=== PATIENT | female | born 1995 | race American Indian/Alaskan Native ===

== ENCOUNTER 2018-09-27 11:51 | Emergency (ER) | payer MEDICAID ==
[2018-09-27] MEDS ORDERED: TYLENOL PO ONE (12:11)
--- NOTE | 2018-09-27 12:12 | Emergency Department Report ---
Blank Doc - Documentation Documentation: 23 y/ofemale with a confirm preg at [facility] 08/29/18 reports that she had a miscarriage at home. Come in for pelvis paiin, nausea, vomiting and low grade fever. Patient is a DM type 1 in insulin Alejandra Davis
[2018-09-27] MEDS ORDERED: TYLENOL ONE (12:15)
[2018-09-27] MEDS ORDERED: ZOFRAN ODT PO ONE (12:15)
[2018-09-27] MEDS ORDERED: ZOFRAN ODT ONE (12:18)
[2018-09-27] MEDS ORDERED: NACL 0.9% 1000 ML 1,000 ML IV ONE ×2 (12:34→12:41)
[2018-09-27] MEDS ORDERED: ZOFRAN IV ONE ×2 (12:34→15:52)
[2018-09-27] MEDS ORDERED: MORPHINE IV ONE ×2 (12:41→15:48)
[2018-09-27 12:50] LABS: Basophils # (Auto) 0.1 K/mm3 (0.0-0.1); Basophils % (Auto) 0.8 % (0.0-1.8); Eosinophils # (Auto) 0.1 K/mm3 (0.0-0.4); Eosinophils % (Auto) 1.6 % (0.0-4.3); Hematocrit 37.1 % (30.3-42.9); Hemoglobin 12.6 gm/dl (10.1-14.3); Lymphocytes # (Auto) 1.6 K/mm3 (1.2-5.4); Lymphocytes % (Auto) 22.2 % (13.4-35.0); Mean Corpuscular HGB Conc 34 % (30-34); Mean Corpuscular Volume 93 fl (79-97); Monocytes # (Auto) 0.4 K/mm3 (0.0-0.8); Monocytes % (Auto) 5.2 % (0.0-7.3); Platelet Count 229 K/mm3 (140-440); Red Blood Count 4.01 M/mm3 (3.65-5.03); Red Cell Distribution Width 13.4 % (13.2-15.2)
[2018-09-27 13:09] LABS: Alanine Aminotransferase 16 units/L (7-56); Albumin 4.3 g/dL (3.9-5); BUN/Creatinine Ratio 13; Blood Urea Nitrogen 9 mg/dL (7-17); Calcium 9.3 mg/dL (8.4-10.2); Hemolysis Index 7
[2018-09-27 13:15] LABS: Bilirubin,Urine NEG (Negative); Blood,Urine SM (Negative); Color,Urine Yellow (Yellow); Protein,Urine <15 mg/dL mg/dL (Negative)
--- NOTE | 2018-09-27 13:27 | Emergency Department Report ---
ED Abdominal Pain HPI - General Chief Complaint: Nausea/Vomiting/Diarrhea Stated Complaint: DIABETIC/ABD PAIN Time Seen by Provider: 09/27/18 12:33 Source: patient Mode of arrival: Ambulatory Limitations: No Limitations - History of Present Illness Initial Comments: 23-year-old female with a past medical history of insulin-dependent diabetes and recurrent pancreatitis presents to the hospital when she had a miscarriage 2 weeks ago like he secondary to a anchored clear. Now she is having recurrent abdominal pain and vomiting since this a.m. and started 1 hour prior to arrival. Patient states that her pancreatitis is secondary to her diabetes. She experienced 3 weeks of intermittent vomiting and abdominal pain which she thinks caused her miscarriage. Patient did have an ultrasound at [facility] but an IUP was not verified and she was told to return as her advances. 2 weeks ago patient passed what looked like a blood clot mixed with a small fetus. She has not followed up since passing the baby and continues to have mild bleeding and intermittent suprapubic cramps. She denies fever or dysuria and states her blood type is A+. This was her fourth . She has 2 living children and now has had her second miscarriage. Her [employer] doctors are affiliated with [facility] and she denies previous abdominal surgeries. Patient reports she has been using tampons for the bleeding. Pt took her insulin prior to arrival. Severity scale (0 -10): 8 - Related Data Previous Rx's Medication Instructions Recorded Last Taken Type Famotidine [Pepcid] 20 mg PO BID #20 tablet 09/27/18 Unknown Rx HYDROcodone/APAP 5-325 [Addis 1 each PO Q6HR PRN #14 tablet 09/27/18 Unknown Rx 5/325] Ondansetron [Zofran Odt] 4 mg PO Q8HR PRN #20 tab.rapdis 09/27/18 Unknown Rx Allergies Allergy/AdvReac Type Severity Reaction Status Date / Time No Known Allergies Allergy Unverified 09/27/18 11:56 ED Review of Systems ROS: Stated complaint: DIABETIC/ABD PAIN Other details as noted in HPI Comment: All other systems reviewed and negative ED Past Medical Hx - Past Medical History Hx Diabetes: Yes (IDDM) - Surgical History Past Surgical History?: No - Social History Smoking Status: Never Smoker Substance Use Type: None - Medications Home Medications: Home Medications Medication Instructions Recorded Confirmed Last Taken Type Famotidine [Pepcid] 20 mg PO BID #20 tablet 09/27/18 Unknown Rx HYDROcodone/APAP 5-325 [Addis 1 each PO Q6HR PRN #14 tablet 09/27/18 Unknown Rx 5/325] Ondansetron [Zofran Odt] 4 mg PO Q8HR PRN #20 tab.rapdis 09/27/18 Unknown Rx ED Physical Exam - General Limitations: No Limitations - Other Other exam information: General: No limitations, patient is alert in no acute distress Head exam: Atraumatic, normocephalic Eyes exam: Normal appearance, nonicteric sclera ENT: Moist mucous membrane, normal oropharynx Neck exam: Normal inspection, full range of motion, no meningismus nontender Respiratory exam: Clear to auscultation bilateral, no wheezes, rales, crackles Cardiovascular: Mild tachycardia Abdomen: Soft, nondistended, epigastric and suprapubic tenderness, with normal bowel sounds, no rebound, or guarding Extremity: Full range of motion normal inspection no deformity Back: Normal Inspection, full range of motion, no tenderness Neurologic: Alert, oriented x3, cranial nerves intact, no motor or sensory deficit Psychiatric: normal affect, normal mood Skin: Warm, dry, intact ED Course Vital Signs 09/27/18 09/27/18 09/27/18 12:09 13:10 14:41 Temperature 99.9 F H Pulse Rate 107 H 80 74 Respiratory 18 18 18 Rate Blood Pressure 130/90 Blood Pressure 109/66 115/65 [Right] O2 Sat by Pulse 98 100 100 Oximetry ED Medical Decision Making - Lab Data Result diagrams: 09/27/18 12:27 09/27/18 12:27 Lab Results 09/27/18 09/27/18 09/27/18 Range/Units 12:05 12:27 12:27 WBC 7.0 (4.5-11.0) K/mm3 RBC 4.01 (3.65-5.03) M/mm3 Hgb 12.6 (10.1-14.3) gm/dl Hct 37.1 (30.3-42.9) % MCV 93 (79-97) fl MCH 31 (28-32) pg MCHC 34 (30-34) % RDW 13.4 (13.2-15.2) % Plt Count 229 (140-440) K/mm3 Lymph % (Auto) 22.2 (13.4-35.0) % [place] % (Auto) 5.2 (0.0-7.3) % Eos % (Auto) 1.6 (0.0-4.3) % Baso % (Auto) 0.8 (0.0-1.8) % Lymph # 1.6 (1.2-5.4) K/mm3 [place] # 0.4 (0.0-0.8) K/mm3 Eos # 0.1 (0.0-0.4) K/mm3 Baso # 0.1 (0.0-0.1) K/mm3 Seg Neutrophils % 70.2 H (40.0-70.0) % Seg Neutrophils # 4.9 (1.8-7.7) K/mm3 VBG pH (7.320-7.420) Sodium 133 L (137-145) mmol/L Potassium 3.7 (3.6-5.0) mmol/L Chloride 100.2 (98-107) mmol/L Carbon Dioxide 21 L (22-30) mmol/L Anion Gap 16 mmol/L BUN 9 (7-17) mg/dL Creatinine 0.7 (0.7-1.2) mg/dL Estimated GFR > 60 ml/min BUN/Creatinine Ratio 13 % Glucose 239 H (65-100) mg/dL POC Glucose 246 H (70-105) Calcium 9.3 (8.4-10.2) mg/dL Total Bilirubin 0.30 (0.1-1.2) mg/dL AST 18 (5-40) units/L ALT 16 (7-56) units/L Alkaline Phosphatase 68 (35-129) units/L Total Protein 7.8 (6.3-8.2) g/dL Albumin 4.3 (3.9-5) g/dL Albumin/Globulin Ratio 1.2 % Lipase 32 (13-60) units/L HCG, Quant (0-4) mIU/mL Urine Color (Yellow) Urine Turbidity (Clear) Urine pH (5.0-7.0) Ur Specific [place] (1.003-1.030) Urine Protein (Negative) mg/dL Urine Glucose (UA) (Negative) mg/dL Urine Ketones (Negative) mg/dL Urine Blood (Negative) Urine Nitrite (Negative) Urine Bilirubin (Negative) Urine Urobilinogen (<2.0) mg/dL Ur Leukocyte Esterase (Negative) Urine WBC (Auto) (0.0-6.0) /HPF Urine RBC (Auto) (0.0-6.0) /HPF U Epithel Cells (Auto) (0-13.0) /HPF Blood Type Antibody Screen 09/27/18 09/27/18 09/27/18 Range/Units 12:27 12:35 12:38 WBC (4.5-11.0) K/mm3 RBC (3.65-5.03) M/mm3 Hgb (10.1-14.3) gm/dl Hct (30.3-42.9) % MCV (79-97) fl MCH (28-32) pg MCHC (30-34) % RDW (13.2-15.2) % Plt Count (140-440) K/mm3 Lymph % (Auto) (13.4-35.0) % [place] % (Auto) (0.0-7.3) % Eos % (Auto) (0.0-4.3) % Baso % (Auto) (0.0-1.8) % Lymph # (1.2-5.4) K/mm3 [place] # (0.0-0.8) K/mm3 Eos # (0.0-0.4) K/mm3 Baso # (0.0-0.1) K/mm3 Seg Neutrophils % (40.0-70.0) % Seg Neutrophils # (1.8-7.7) K/mm3 VBG pH 7.467 H (7.320-7.420) Sodium (137-145) mmol/L Potassium (3.6-5.0) mmol/L Chloride (98-107) mmol/L Carbon Dioxide (22-30) mmol/L Anion Gap mmol/L BUN (7-17) mg/dL Creatinine (0.7-1.2) mg/dL Estimated GFR ml/min BUN/Creatinine Ratio % Glucose (65-100) mg/dL POC Glucose (70-105) Calcium (8.4-10.2) mg/dL Total Bilirubin (0.1-1.2) mg/dL AST (5-40) units/L ALT (7-56) units/L Alkaline Phosphatase (35-129) units/L Total Protein (6.3-8.2) g/dL Albumin (3.9-5) g/dL Albumin/Globulin Ratio % Lipase (13-60) units/L HCG, Quant 122.2 H (0-4) mIU/mL Urine Color Yellow (Yellow) Urine Turbidity Slightly-cloudy (Clear) Urine pH 6.0 (5.0-7.0) Ur Specific [place] 1.028 (1.003-1.030) Urine Protein <15 mg/dl (Negative) mg/dL Urine Glucose (UA) 150 (Negative) mg/dL Urine Ketones Neg (Negative) mg/dL Urine Blood Sm (Negative) Urine Nitrite Neg (Negative) Urine Bilirubin Neg (Negative) Urine Urobilinogen 4.0 (<2.0) mg/dL Ur Leukocyte Esterase Neg (Negative) Urine WBC (Auto) 1.0 (0.0-6.0) /HPF Urine RBC (Auto) 1.0 (0.0-6.0) /HPF U Epithel Cells (Auto) 5.0 (0-13.0) /HPF Blood Type Antibody Screen 09/27/18 Range/Units 13:04 WBC (4.5-11.0) K/mm3 RBC (3.65-5.03) M/mm3 Hgb (10.1-14.3) gm/dl Hct (30.3-42.9) % MCV (79-97) fl MCH (28-32) pg MCHC (30-34) % RDW (13.2-15.2) % Plt Count (140-440) K/mm3 Lymph % (Auto) (13.4-35.0) % [place] % (Auto) (0.0-7.3) % Eos % (Auto) (0.0-4.3) % Baso % (Auto) (0.0-1.8) % Lymph # (1.2-5.4) K/mm3 [place] # (0.0-0.8) K/mm3 Eos # (0.0-0.4) K/mm3 Baso # (0.0-0.1) K/mm3 Seg Neutrophils % (40.0-70.0) % Seg Neutrophils # (1.8-7.7) K/mm3 VBG pH (7.320-7.420) Sodium (137-145) mmol/L Potassium (3.6-5.0) mmol/L Chloride (98-107) mmol/L Carbon Dioxide (22-30) mmol/L Anion Gap mmol/L BUN (7-17) mg/dL Creatinine (0.7-1.2) mg/dL Estimated GFR ml/min BUN/Creatinine Ratio % Glucose (65-100) mg/dL POC Glucose (70-105) Calcium (8.4-10.2) mg/dL Total Bilirubin (0.1-1.2) mg/dL AST (5-40) units/L ALT (7-56) units/L Alkaline Phosphatase (35-129) units/L Total Protein (6.3-8.2) g/dL Albumin (3.9-5) g/dL Albumin/Globulin Ratio % Lipase (13-60) units/L HCG, Quant (0-4) mIU/mL Urine Color (Yellow) Urine Turbidity (Clear) Urine pH (5.0-7.0) Ur Specific [place] (1.003-1.030) Urine Protein (Negative) mg/dL Urine Glucose (UA) (Negative) mg/dL Urine Ketones (Negative) mg/dL Urine Blood (Negative) Urine Nitrite (Negative) Urine Bilirubin (Negative) Urine Urobilinogen (<2.0) mg/dL Ur Leukocyte Esterase (Negative) Urine WBC (Auto) (0.0-6.0) /HPF Urine RBC (Auto) (0.0-6.0) /HPF U Epithel Cells (Auto) (0-13.0) /HPF Blood Type A POSITIVE Antibody Screen Negative - Radiology Data Radiology results: report reviewed Transvaginal/OB ultrasound: No IUP. Ovaries are identified. Endometrial thickness 1.1 m towards the fundus. Cervix closed. No free fluid. Abdominal ultrasound: No acute findings. - Medical Decision Making no lab signs of infection hr improved with pain control (morphine) and IVF (2L NS) no signs of dka plan to d/c with meds and f/u with her obstetrics and gynecology professor copy of results provided to take to her [facility] obstetrics and gynecology professor rh+ blood type (no rhogam) - Differential Diagnosis DKA, UTI, hyperglycemia, pancreatitis, biliary colic, miscarriage Critical Care Time: No Critical care attestation.: If time is entered above; I have spent that time in minutes in the direct care of this critically ill patient, excluding procedure time. ED Disposition Clinical Impression: Miscarriage, Nausea and vomiting, IDDM (insulin dependent diabetes mellitus) Disposition: TO HOME OR SELFCARE Is pt being admited?: No Does the pt Need Aspirin: No Condition: Stable Instructions: Spontaneous Miscarriage (ED), Diabetes Mellitus Type 1 in Adults (ED), Acute Nausea and Vomiting (ED) Additional Instructions: Take the medication as prescribed. Follow up with your doctor or the clinic/doctor provided. Return if symptoms worsen as indicated by your discharge instructions. Take the copy of the labs and US reports provided to your doctor for follow up. Prescriptions: HYDROcodone/APAP 5-325 [Addis 5/325] 1 each PO Q6HR PRN #14 tablet PRN Reason: Pain Famotidine [Pepcid] 20 mg PO BID #20 tablet Ondansetron [Zofran Odt] 4 mg PO Q8HR PRN #20 tab.rapdis PRN Reason: Nausea And Vomiting Referrals: PURA AC MD [Staff Physician] - 2-3 Days (obstetrics and gynecology professor ) your, [employer] [Other] - 2-3 Days Time of Disposition: 15:51
--- NOTE | 2018-09-27 14:54 | Ultrasound Report ---
ULTRASOUND OB LESS THAN 14 WEEKS - TRANSABDOMINAL AND TRANSVAGINAL INDICATION: Vaginal bleeding. Serum beta-hCG of 112.8 units. History of miscarriage 1 week ago. COMPARISON: None similar. FINDINGS: Transabdominal and transvaginal pelvic sonography performed in this patient with LMP of 08/03/2018 and estimated menstrual age of 7 weeks and 6 days and EDC of 05/10/2019. An anteverted uterus measuring approximately 8 x 4.9 x 5.3 cm demonstrates endometrial thickness of approximately 1.1 cm towards the fundus, endovaginal image 8. Cervix closed. No significant free fluid. Right ovary is 2.9 x 1.7 x 2.2 cm while the left ovary is 3.9 x 1.7 x 2.5 cm. Small bilateral follicles incidentally noted. CONCLUSION: 1. No sonographic evidence of a viable intrauterine gestation at this time, as described. 2. Both ovaries identified, as above. Please also correlate clinically for accuracy of the LMP and with followup serum beta-hCG values, as warranted. Thank you for the opportunity to participate in this patient's care.
--- NOTE | 2018-09-27 14:58 | Ultrasound Report ---
ULTRASOUND ABDOMEN INDICATION: Upper abdominal pain, nausea, vomiting. History of pancreatitis. COMPARISON: None similar at this institution. FINDINGS: Abdominal sonography demonstrates normal hepatic contour without focal suspicious lesions or biliary dilatation. Slight nonspecific hepatic coarsening not entirely excluded versus technical. No shadowing gallstones or pericholecystic fluid. A 0.4 cm non-shadowing echogenicity/possible polyp near the gallbladder neck as on image 29. Gallbladder wall thickness is 2.3 mm. Common bile duct is 2.9 mm. Homogenous spleen estimated at 9.8 cm in length. No ascites. Visualized pancreas, nonaneurysmal abdominal aorta and IVC within normal limits. Nonhydronephrotic bilateral kidneys with estimated lengths of 10.3 cm on the right and 9.8 cm on the left. CONCLUSION: No acute abdominal sonographic abnormality with a tiny gallbladder polyp possible, as described. Thank you for the opportunity to participate in this patient's care.
[2018-09-27] MEDS ORDERED: PEPCID IV ONE (15:48)
[2018-09-27 18:49] VITALS: BP 132/60
== END 2018-09-27 18:48 | disposition home or self-care (01) ==
LOC: ED 11:51
DX: O03.9 Complete or unspecified spontaneous abortion without complication (principal); O21.9 Vomiting of pregnancy, unspecified; O24.911 Unspecified diabetes mellitus in pregnancy, first trimester; Z79.4 Long term (current) use of insulin; Z3A.01 Less than 8 weeks gestation of pregnancy
CPT/HCPCS: 36415; 76700; 76801; 76817; 80053; 81001; 82805; 82962; 83690; 84702; 85025; 86850; 86900; 86901; 96361; 96374; 96375; 96376; 99284; J2270; J2405; J7030; Q0162

== ENCOUNTER 2018-10-19 22:33 | Emergency (ER) | payer MEDICAID ==
[2018-10-19 22:58] VITALS: BP 129/92
[2018-10-19 23:30] LABS: Basophils # (Auto) 0.1 K/mm3 (0.0-0.1); Basophils % (Auto) 0.8 % (0.0-1.8); Eosinophils # (Auto) 0.2 K/mm3 (0.0-0.4); Eosinophils % (Auto) 1.8 % (0.0-4.3); Lymphocytes # (Auto) 3.3 K/mm3 (1.2-5.4); Lymphocytes % (Auto) 33.9 % (13.4-35.0); Mean Corpuscular HGB Conc 36 % (30-34); Mean Corpuscular Volume 92 fl (79-97); Monocytes # (Auto) 0.6 K/mm3 (0.0-0.8); Monocytes % (Auto) 5.9 % (0.0-7.3); Platelet Count 249 K/mm3 (140-440); Red Blood Count 4.27 M/mm3 (3.65-5.03); Red Cell Distribution Width 13.5 % (13.2-15.2)
[2018-10-19 23:36] LABS: Hematocrit 39.1 % (30.3-42.9); Hemoglobin 14.1 gm/dl (10.1-14.3)
[2018-10-19 23:54] LABS: Alanine Aminotransferase 41 units/L (7-56); Albumin 4.2 g/dL (3.9-5); BUN/Creatinine Ratio 7; Blood Urea Nitrogen 6 mg/dL (7-17); Calcium 10.1 mg/dL (8.4-10.2); Hemolysis Index 7
[2018-10-20] MEDS ORDERED: ZOFRAN IV ONE (00:22)
[2018-10-20] MEDS ORDERED: NACL 0.9% 1000 ML 1,000 ML IV ONE (00:22)
[2018-10-20] MEDS ORDERED: K-DUR PO ONE (00:22)
[2018-10-20 00:56] LABS: Bilirubin,Urine NEG (Negative); Blood,Urine SM (Negative); Mucus,Urine 2+ /HPF
[2018-10-20 00:58] LABS: Color,Urine Dark Yellow (Yellow)
[2018-10-20] MEDS ORDERED: KCL 10MEQ/100ML 10 MEQ/100 ML BAG IV SCH (01:00)
== END 2018-10-20 00:22 | disposition left against medical advice (07) ==
LOC: ED 22:33
DX: R10.9 Unspecified abdominal pain (principal); Z53.21 Procedure and treatment not carried out due to patient leaving prior to being seen by health care provider
CPT/HCPCS: 36415; 80053; 81001; 83690; 84703; 85025

== ENCOUNTER 2018-10-26 23:53 | Emergency (ER) | payer MEDICAID ==
[2018-10-27 00:38] LABS: Basophils # (Auto) 0.1 K/mm3 (0.0-0.1); Basophils % (Auto) 1.1 % (0.0-1.8); Eosinophils # (Auto) 0.2 K/mm3 (0.0-0.4); Eosinophils % (Auto) 3.9 % (0.0-4.3); Hematocrit 33.7 % (30.3-42.9); Hemoglobin 11.4 gm/dl (10.1-14.3); Lymphocytes # (Auto) 2.1 K/mm3 (1.2-5.4); Lymphocytes % (Auto) 39.9 % (13.4-35.0); Mean Corpuscular HGB Conc 34 % (30-34); Mean Corpuscular Volume 95 fl (79-97); Monocytes # (Auto) 0.4 K/mm3 (0.0-0.8); Monocytes % (Auto) 6.8 % (0.0-7.3); Platelet Count 228 K/mm3 (140-440); Red Blood Count 3.56 M/mm3 (3.65-5.03); Red Cell Distribution Width 13.6 % (13.2-15.2)
[2018-10-27 00:56] LABS: BUN/Creatinine Ratio 10; Blood Urea Nitrogen 8 mg/dL (7-17); Hemolysis Index 18
[2018-10-27 01:44] LABS: Bilirubin,Urine NEG (Negative); Blood,Urine NEG (Negative); Color,Urine Straw (Yellow); Protein,Urine <15 mg/dL mg/dL (Negative); Urobilinogen,Urine < 2.0 mg/dL (<2.0)
[2018-10-27] MEDS ORDERED: ZOFRAN IV ONE (03:12)
[2018-10-27] MEDS ORDERED: HumuLIN R IV ONE ×2 (03:12→05:01)
[2018-10-27] MEDS ORDERED: NACL 0.9% 1000 ML 1,000 ML IV ONE (03:12)
[2018-10-27] MEDS ORDERED: MORPHINE IV ONE (03:33)
[2018-10-27 03:54] LABS: HCG Qualitative,Urine Negative (Negative)
[2018-10-27 04:06] LABS: Alanine Aminotransferase 17 units/L (7-56); Albumin 3.7 g/dL (3.9-5)
[2018-10-27 04:15] LABS: Bilirubin,Direct < 0.2 mg/dL (0-0.2)
[2018-10-27] MEDS ORDERED: TORADOL IV ONE (04:16)
[2018-10-27] MEDS ORDERED: DILAUDID IV ONE (05:01)
--- NOTE | 2018-10-27 05:10 | Cat Scan Report ---
PROCEDURE: CT ABDOMEN PELVIS W CON TECHNIQUE: Computerized axial tomography of the abdomen and pelvis was performed after the IV inject ion of iodinated nonionic contrast. CT DOSE LENGTH PRODUCT: 927.6 mGycm HISTORY: abd distention, n,v, hx of dm and pancreatitis COMPARISONS: None . FINDINGS: Visualized lower thorax: No significant abnormality. Liver: Normal size and attenuation. Spleen: Normal size and attenuation. Gallbladder and biliary system: Normal. Pancreas: Normal. Adrenals: Normal. Kidneys: Normal. GI tract: There is no bowel obstruction. Evaluation of the bowel lumen is limited without contrast. The appendix is normal. . Lymph nodes and mesentery: Normal. Vasculature: Normal.. Bladder: Normal. Reproductive organs: Normal. Peritoneum: There is no ascites or free air, abscess or adenopathy.. Musculoskeletal structures: No significant abnormality. Other: None . IMPRESSION: There is no specific radiographic evidence of pancreatitis. Correlation with amylase and lipase level s may be helpful. . There is no bowel obstruction. Evaluation of the bowel lumen is limited without contrast. The appendi x is normal. . There is no ascites or free air, abscess or adenopathy.. This document is electronically signed by Fransico Hoffman MD., October 27 2018 06:08:08 AM ET
--- NOTE | 2018-10-27 05:33 | Emergency Department Report ---
ED Abdominal Pain HPI - General Chief Complaint: Hyperglycemia Stated Complaint: HIGH BLOOD SUGAR Time Seen by Provider: 10/27/18 03:23 Source: patient Mode of arrival: Ambulatory Limitations: No Limitations - History of Present Illness Initial Comments: 23-year-old female with a past medical history of insulin-dependent diabetes and pancreatitis presents to the Hospital complaining of feeling like her blood sugar is high. She did not check it but states she has symptoms that she has with her blood sugar is significantly elevated. She complains of sharp intermittent abdominal pain, nausea and vomiting since yesterday, and generalized weakness. She denies fever, dysuria, hematuria, or fever. She's been compliant with her insulin. She does have a history of DKA. Feels like her abdomen is more swollen than normal. Severity scale (0 -10): 8 - Related Data Previous Rx's Medication Instructions Recorded Last Taken Type Famotidine [Pepcid] 20 mg PO BID #20 tablet 09/27/18 Unknown Rx HYDROcodone/APAP 5-325 [Barre 1 each PO Q6HR PRN #14 tablet 09/27/18 Unknown Rx 5/325] Ondansetron [Zofran Odt] 4 mg PO Q8HR PRN #20 tab.rapdis 09/27/18 Unknown Rx Insulin NPH, Human [NovoLIN N] 15 unit SQ QPMDIAB #30 day 10/27/18 Unknown Rx Insulin NPH, Human [NovoLIN N] 25 unit SUB-Q QAMDIAB #30 day 10/27/18 Unknown Rx Insulin Regular, Human [Novolin R] 5 units SC AC #30 day 10/27/18 Unknown Rx Allergies Allergy/AdvReac Type Severity Reaction Status Date / Time No Known Allergies Allergy Unverified 09/27/18 11:56 ED Review of Systems ROS: Stated complaint: HIGH BLOOD SUGAR Other details as noted in HPI Comment: All other systems reviewed and negative ED Past Medical Hx - Past Medical History Previous Medical History?: Yes Hx Diabetes: Yes (IDDM) Additional medical history: Pancreatitis - Surgical History Past Surgical History?: No - Social History Smoking Status: Never Smoker Substance Use Type: None - Medications Home Medications: Home Medications Medication Instructions Recorded Confirmed Last Taken Type Famotidine [Pepcid] 20 mg PO BID #20 tablet 09/27/18 Unknown Rx HYDROcodone/APAP 5-325 [Barre 1 each PO Q6HR PRN #14 tablet 09/27/18 Unknown Rx 5/325] Ondansetron [Zofran Odt] 4 mg PO Q8HR PRN #20 tab.rapdis 09/27/18 Unknown Rx Insulin NPH, Human [NovoLIN N] 15 unit SQ QPMDIAB #30 day 10/27/18 Unknown Rx Insulin NPH, Human [NovoLIN N] 25 unit SUB-Q QAMDIAB #30 day 10/27/18 Unknown Rx Insulin Regular, Human [Novolin R] 5 units SC AC #30 day 10/27/18 Unknown Rx ED Physical Exam - General Limitations: No Limitations - Other Other exam information: General: No limitations, patient is alert in no acute distress Head exam: Atraumatic, normocephalic Eyes exam: Normal appearance, nonicteric sclera ENT: Moist mucous membrane, normal oropharynx Neck exam: Normal inspection, full range of motion, no meningismus nontender Respiratory exam: Clear to auscultation bilateral, no wheezes, rales, crackles Cardiovascular: Normal rate and rhythm, normal heart sounds Abdomen: Soft, nondistended, very mild generalized abdominal tenderness, with normal bowel sounds, no rebound, or guarding Extremity: Full range of motion normal inspection no deformity Back: Normal Inspection, full range of motion, no tenderness Neurologic: Alert, oriented x3, cranial nerves intact, no motor or sensory deficit Psychiatric: normal affect, normal mood Skin: Warm, dry, intact ED Course Vital Signs 10/26/18 10/26/18 10/27/18 23:57 23:58 01:46 Temperature 98.0 F 98.0 F Pulse Rate 99 H 94 H 79 Respiratory 18 18 15 Rate Blood Pressure 151/100 151/100 Blood Pressure [Left] O2 Sat by Pulse 100 100 100 Oximetry 10/27/18 10/27/18 10/27/18 01:48 02:00 02:16 Temperature 98 F Pulse Rate 64 Respiratory 20 18 13 Rate Blood Pressure 124/74 133/83 Blood Pressure 124/74 [Left] O2 Sat by Pulse 100 100 100 Oximetry 10/27/18 10/27/18 10/27/18 02:30 03:40 03:46 Temperature Pulse Rate 60 Respiratory 14 18 Rate Blood Pressure 133/83 127/77 103/68 Blood Pressure [Left] O2 Sat by Pulse 100 100 100 Oximetry 10/27/18 10/27/18 10/27/18 04:15 05:00 05:08 Temperature Pulse Rate 69 66 Respiratory 18 16 Rate Blood Pressure 101/60 Blood Pressure [Left] O2 Sat by Pulse 100 Oximetry 10/27/18 10/27/18 10/27/18 05:15 05:30 05:38 Temperature Pulse Rate 60 63 Respiratory 15 15 16 Rate Blood Pressure 107/64 103/58 Blood Pressure [Left] O2 Sat by Pulse 100 97 Oximetry 10/27/18 10/27/18 05:45 06:00 Temperature Pulse Rate 61 60 Respiratory 15 15 Rate Blood Pressure Blood Pressure [Left] O2 Sat by Pulse 99 98 Oximetry ED Medical Decision Making - Lab Data Result diagrams: 10/27/18 00:10 10/27/18 00:12 - Radiology Data Radiology results: report reviewed PROCEDURE: CT ABDOMEN PELVIS W CON TECHNIQUE: Computerized axial tomography of the abdomen and pelvis was performed after the IV injection of iodinated nonionic contrast. CT DOSE LENGTH PRODUCT: 927.6 mGycm HISTORY: abd distention, n,v, hx of dm and pancreatitis COMPARISONS: None . FINDINGS: Visualized lower thorax: No significant abnormality. Liver: Normal size and attenuation. Spleen: Normal size and attenuation. Gallbladder and biliary system: Normal. Pancreas: Normal. Adrenals: Normal. Kidneys: Normal. GI tract: There is no bowel obstruction. Evaluation of the bowel lumen is limited without contrast. The appendix is normal. . Lymph nodes and mesentery: Normal. Vasculature: Normal.. Bladder: Normal. Reproductive organs: Normal. Peritoneum: There is no ascites or free air, abscess or adenopathy.. Musculoskeletal structures: No significant abnormality. Other: None . IMPRESSION: There is no specific radiographic evidence of pancreatitis. Correlation with amylase and lipase levels may be helpful. . There is no bowel obstruction. Evaluation of the bowel lumen is limited without contrast. The appendix is normal. . There is no ascites or free air, abscess or adenopathy.. - Medical Decision Making No signs of DKA. Treated with pain and nausea medication in the ED as well as IV fluids. Improvement in glucose of symptoms after treatment. CT and labs and I reveal any acute abnormality other than hyperglycemia. She will be discharged home with medications for pain and nausea. - Differential Diagnosis DKA, pancreatitis, gastritis, UTI, Critical Care Time: No Critical care attestation.: If time is entered above; I have spent that time in minutes in the direct care of this critically ill patient, excluding procedure time. ED Disposition Clinical Impression: Uncontrolled diabetes mellitus, Nausea & vomiting, Abdominal pain Disposition: TO HOME OR SELFCARE Is pt being admited?: No Condition: Stable Instructions: Diabetes Mellitus Type 2 in Adults (ED), Acute Nausea and Vomiting (ED), Abdominal Pain (ED) Additional Instructions: Take the medication as prescribed. Follow up with your doctor or the clinic/doctor provided. Return if symptoms worsen as indicated by your discharge instructions Prescriptions: Insulin NPH, Human [NovoLIN N] 15 unit SQ QPMDIAB #30 day Insulin NPH, Human [NovoLIN N] 25 unit SUB-Q QAMDIAB #30 day Insulin Regular, Human [Novolin R] 5 units SC AC #30 day Referrals: [facility] [Provider Group] - 3-5 Days PRIMARY CARE, [Primary Care Provider] - 3-5 Days Time of Disposition: 06:00
[2018-10-27 05:39] VITALS: BP 103/58
== END 2018-10-27 06:39 | disposition home or self-care (01) ==
LOC: ED 23:53
DX: E11.65 Type 2 diabetes mellitus with hyperglycemia (principal); R11.2 Nausea with vomiting, unspecified; Z79.4 Long term (current) use of insulin
CPT/HCPCS: 36415; 74177; 80048; 80076; 81001; 81025; 82962; 83690; 85025; 96361; 96374; 96375; 96376; 99284; J1170; J1885; J2270; J2405; J7030; Q9967; J1815

== ENCOUNTER 2018-12-05 15:25 | Inpatient (IN) | payer MEDICAID ==
[2018-12-05] MEDS ORDERED: PROVENTIL IH ONE ×2 (16:08→20:24)
[2018-12-05] MEDS ORDERED: ATROVENT IH ONE ×2 (16:08→20:24)
--- NOTE | 2018-12-05 16:08 | Event Note ---
ED Screening Note ED Screening Note: cough x 3-4 days +white sputum production +subjective fever +rhinorrhea +congestion no sick contacts LNMP: 3 weeks ago pt is a IDDM, states they have been 400-500 PMHx pancreatitis This initial assessment/diagnostic orders/clinical plan/treatment(s) is/are subject to change based on patients health status, clinical progression and re- assessment by fellow clinical providers in the ED. Further treatment and workup at subsequent clinical providers discretion. Patient/guardian urged not to elope from the ED as their condition may be serious if not clinically assessed and managed. Initial orders include: urine preg, UA, CXR, neb tx
[2018-12-05 16:44] LABS: Basophils # (Auto) 0.1 K/mm3 (0.0-0.1); Basophils % (Auto) 0.5 % (0.0-1.8); Eosinophils # (Auto) 0.4 K/mm3 (0.0-0.4); Eosinophils % (Auto) 3.8 % (0.0-4.3); Hematocrit 38.5 % (30.3-42.9); Hemoglobin 13.2 gm/dl (10.1-14.3); Lymphocytes # (Auto) 1.8 K/mm3 (1.2-5.4); Lymphocytes % (Auto) 17.4 % (13.4-35.0); Mean Corpuscular HGB Conc 34 % (30-34); Mean Corpuscular Volume 91 fl (79-97); Monocytes # (Auto) 0.7 K/mm3 (0.0-0.8); Monocytes % (Auto) 6.7 % (0.0-7.3); Platelet Count 284 K/mm3 (140-440); Red Blood Count 4.23 M/mm3 (3.65-5.03); Red Cell Distribution Width 12.9 % (13.2-15.2)
[2018-12-05 16:54] LABS: BUN/Creatinine Ratio 10; Blood Urea Nitrogen 9 mg/dL (7-17); Calcium 9.3 mg/dL (8.4-10.2); Hemolysis Index 2
[2018-12-05 17:36] LABS: HCG Qualitative,Urine Negative (Negative)
[2018-12-05 17:38] LABS: Bacteria,Urine 1+ /HPF (Negative); Bilirubin,Urine NEG (Negative); Blood,Urine NEG (Negative); Color,Urine Straw (Yellow); Protein,Urine <15 mg/dL mg/dL (Negative); Urobilinogen,Urine < 2.0 mg/dL (<2.0)
--- NOTE | 2018-12-05 18:14 | Emergency Department Report ---
- General Chief Complaint: Upper Respiratory Infection Stated Complaint: COUGING/LIGHTHEADED Time Seen by Provider: 12/05/18 18:05 Source: patient Mode of arrival: Ambulatory Limitations: No Limitations - History of Present Illness Initial Comments: Patient is a 23-year-old female presents emergency room with complaints of cough and lightheadedness. Patient states that she's been coughing for 3 days and she is having a yellow sputum. Patient states her symptoms are worsening. Patient states she has chills and body aches. Patient states that she has not seen a physician for this. Patient states she has not seen a physician for over a year for her diabetes. Patient states she is type I diabetic and takes Novolin twice a day. Patient denies chest pain or shortness of breath. Patient denies syncope. Patient denies blurred vision. Patient denies headache. Patient d enies neck pain. MD Complaint: cough, rhinorrhea, nasal congestion -: Sudden, days(s) Severity: severe Consistency: constant Improves With: rest Worsens With: activity Associated Symptoms: chills, myalgias, rhinorrhea, nasal congestion, cough. denies: fever, diaphoresis, headache, sore throat, stiff neck, chest pain, shor tness of breath, abdominal pain, nausea, vomiting, diarrhea, dysuria, rash, confusion, right sweats, weight loss Treatments Prior to Arrival: none - Related Data Previous Rx's Medication Instructions Recorded Last Taken Type Insulin NPH, Human [NovoLIN N] 15 unit SQ QPMDIAB #30 day 10/27/18 Unknown Rx Insulin NPH, Human [NovoLIN N] 25 unit SUB-Q QAMDIAB #30 day 10/27/18 Unknown Rx Insulin Regular, Human [Novolin R] 5 units SC AC #30 day 10/27/18 Unknown Rx Allergies Allergy/AdvReac Type Severity Reaction Status Date / Time No Known Allergies Allergy Verified 12/05/18 15:26 ED Review of Systems ROS: Stated complaint: COUGING/LIGHTHEADED Other details as noted in HPI Constitutional: malaise. denies: chills, fever Eyes: denies: eye pain, eye discharge, vision change ENT: denies: ear pain, throat pain Respiratory: cough. denies: shortness of breath, wheezing Cardiovascular: denies: chest pain, palpitations Endocrine: no symptoms reported Gastrointestinal: denies: abdominal pain, nausea, diarrhea Genitourinary: denies: urgency, dysuria, discharge Musculoskeletal: denies: back pain, joint swelling, arthralgia Skin: denies: rash, lesions Neurological: denies: headache, weakness, paresthesias Psychiatric: denies: anxiety, depression Hematological/Lymphatic: denies: easy bleeding, easy bruising ED Past Medical Hx - Past Medical History Previous Medical History?: Yes Hx Diabetes: Yes (IDDM) Additional medical history: Pancreatitis - Surgical History Past Surgical History?: No - Social History Smoking Status: Never Smoker Substance Use Type: None - Medications Home Medications: Home Medications Medication Instructions Recorded Confirmed Last Taken Type Insulin NPH, Human [NovoLIN N] 15 unit SQ QPMDIAB #30 day 10/27/18 12/05/18 Unknown Rx Insulin NPH, Human [NovoLIN N] 25 unit SUB-Q QAMDIAB #30 day 10/27/18 12/05/18 Unknown Rx Insulin Regular, Human [Novolin R] 5 units SC AC #30 day 10/27/18 12/05/18 Unknown Rx ED Physical Exam - General Limitations: No Limitations General appearance: alert, in no apparent distress - Head Head exam: Present: atraumatic, normocephalic - Eye Eye exam: Present: normal appearance - ENT ENT exam: Present: mucous membranes moist - Neck Neck exam: Present: normal inspection - Respiratory Respiratory exam: Present: normal lung sounds bilaterally, wheezes. Absent: respiratory distress, rales, rhonchi, stridor - Cardiovascular Cardiovascular Exam: Present: regular rate, normal rhythm. Absent: systolic murmur, diastolic murmur, rubs, gallop - GI/Abdominal GI/Abdominal exam: Present: soft, normal bowel sounds. Absent: distended, tenderness, guarding - Rectal Rectal exam: Present: deferred - Extremities Exam Extremities exam: Present: normal inspection - Back Exam Back exam: Present: normal inspection - Neurological Exam Neurological exam: Present: alert, oriented X3 - Psychiatric Psychiatric exam: Present: normal affect, normal mood - Skin Skin exam: Present: warm, dry, intact, normal color. Absent: rash ED Course Vital Signs 12/05/18 12/05/18 12/05/18 16:05 18:53 19:00 Temperature 98.6 F 99 F Pulse Rate 117 H 95 H 98 H Pulse Rate [ Posterior Bilateral Lower Lobe] Respiratory 16 40 H 30 H Rate Respiratory Rate [Posterior Bilateral Lower Lobe] Blood Pressure 130/90 Blood Pressure 121/77 130/90 [Right] O2 Sat by Pulse 97 97 Oximetry 12/05/18 12/05/18 12/05/18 19:15 20:15 20:23 Temperature Pulse Rate 98 H 95 H Pulse Rate [ 99 H Posterior Bilateral Lower Lobe] Respiratory 35 H 22 Rate Respiratory 24 Rate [Posterior Bilateral Lower Lobe] Blood Pressure 130/90 144/84 Blood Pressure [Right] O2 Sat by Pulse 96 97 Oximetry 12/05/18 12/05/18 12/05/18 20:38 21:01 21:15 Temperature Pulse Rate 104 H 109 H Pulse Rate [ 100 H Posterior Bilateral Lower Lobe] Respiratory 28 H 25 H Rate Respiratory 24 Rate [Posterior Bilateral Lower Lobe] Blood Pressure 136/89 150/81 Blood Pressure [Right] O2 Sat by Pulse 96 98 Oximetry 12/05/18 12/05/18 12/05/18 21:30 21:45 22:27 Temperature Pulse Rate 107 H 105 H Pulse Rate [ Posterior Bilateral Lower Lobe] Respiratory 24 24 Rate Respiratory Rate [Posterior Bilateral Lower Lobe] Blood Pressure Blood Pressure [Right] O2 Sat by Pulse 96 95 96 Oximetry 12/05/18 12/05/18 12/05/18 22:31 22:45 23:00 Temperature Pulse Rate 107 H 108 H 109 H Pulse Rate [ Posterior Bilateral Lower Lobe] Respiratory 31 H 28 H 21 Rate Respiratory Rate [Posterior Bilateral Lower Lobe] Blood Pressure 131/84 126/92 Blood Pressure [Right] O2 Sat by Pulse 96 97 95 Oximetry - Reevaluation(s) Reevaluation #1: Patient states she is feeling better after the breathing treatment. Patient will be given insulin and fluids. 12/05/18 18:51 Reevaluation #2: Patient now complaining of severe chest pain or shortness of breath. Patient states the chest pain as a 10 out of 10 and is in the center of her chest radiating to her shoulder. Patient states she is having difficulties breathing. Patient will have a cardiac workup as well as a nuclear scan. Patient is noted to be hypoxic as well at 93. Patient noted to be wheezing on exam. Patient will be given a Medrol, magnesium and another DuoNeb 12/05/18 20:25 Reevaluation #3: Discussed all results with patient. Patient will be admitted to the hospitalist service. Patient agrees to plan of care. 12/05/18 21:43 - Consultations Consultation #1: Hospitalist consulted for admission. Hospitalist to admit patient. Hospitalist to assume care patient. 12/05/18 21:43 ED Medical Decision Making - Lab Data Result diagrams: 12/05/18 16:19 12/05/18 16:19 - EKG Data -: EKG Interpreted by Me EKG shows normal: sinus rhythm, axis, intervals, QRS complexes, ST-T waves Rate: tachycardia - Radiology Data Radiology results: report reviewed, image reviewed interpreted by me: No acute findings except for possible peribronchial cuffing CHEST 2 VIEWS INDICATION / CLINICAL INFORMATION: productive cough. COMPARISON: None available. FINDINGS: SUPPORT DEVICES: None. HEART / MEDIASTINUM: No significant abnormality. LUNGS / PLEURA: No significant pulmonary or pleural abnormality. No pneumothorax. ADDITIONAL FINDINGS: No significant additional findings. IMPRESSION: 1. No acute findings. Nuclear medicine pulmonary VQ scan INDICATION: Acute onset chest pain with dyspnea TECHNIQUE: A total of 24.3 mCi xenon-133 and 3.97 mCi of technetium 99 MAA was injected IV per protocol COMPARISON: Chest radiograph performed earlier today FINDINGS: Normal wash-in and washout of xenon radiotracer. No mismatch perfusion defects are identified IMPRESSION: Low probability for PTE. - Medical Decision Making Patient is a 23-year-old female Emergency room with complaints of cough and dizziness. Patient then while in the ER complained of shortness of breath and chest pain. Patient given her second nebulizer for her shortness of breath wheezing and respiratory distress. Patient was given medications for her pain. Her pain improved. Patient admitted to the hospitalist service. Patient's EKG negative. Due the fact the patient was hypoxic and tachycardic and shortness of breath patient had a nuclear scan done with low probability. Patient's x-ray was negative except for peribronchial cuffing. Patient given antibiotics, Medrol and asa. Patient's labs unremarkable except for elevated blood sugar. Patient is a noncompliant type I diabetic. - Differential Diagnosis cough, chest pain, shortness of breath. Hypoxia. bronchitis Critical Care Time: Yes Critical care attestation.: If time is entered above; I have spent that time in minutes in the direct care of this critically ill patient, excluding procedure time. Critical Care Time: 45 minutes ED Disposition Clinical Impression: Hypoxia, SOB (shortness of breath), Bronchitis, Wheezing, Respiratory distress, Hyperglycemia due to type 1 diabetes mellitus Chest pain Qualifiers: Chest pain type: unspecified Qualified Code(s): R07.9 - Chest pain, unspecified Diabetes Qualifiers: Diabetes mellitus type: type 1 Diabetes mellitus complication status: with other specified complication Qualified Code(s): E10.69 - Type 1 diabetes mellitus with other specified complication Disposition: OP ADMIT IP TO THIS HOSP Is pt being admited?: Yes Does the pt Need Aspirin: No Condition: Critical Time of Disposition: 23:00
[2018-12-05] MEDS ORDERED: HumuLIN R IV ONE ×2 (18:20→21:52)
[2018-12-05] MEDS ORDERED: ROCEPHIN/NS 1 GM/50 ML 1 GM/50 ML BAG IV ONE (18:20)
[2018-12-05] MEDS ORDERED: NACL 0.9% 1000 ML 1,000 ML IV ONE (18:20)
--- NOTE | 2018-12-05 18:27 | XRay Report ---
CHEST 2 VIEWS INDICATION / CLINICAL INFORMATION: productive cough. COMPARISON: None available. FINDINGS: SUPPORT DEVICES: None. HEART / MEDIASTINUM: No significant abnormality. LUNGS / PLEURA: No significant pulmonary or pleural abnormality. No pneumothorax. ADDITIONAL FINDINGS: No significant additional findings. IMPRESSION: 1. No acute findings. Signer Name: Miki Goins MD Signed: 12/05/2018 6:23 PM Workstation Name: [id number]
[2018-12-05] MEDS ORDERED: MORPHINE IV ONE (20:37)
[2018-12-05] MEDS ORDERED: SOLU-Medrol IV ONE (20:37)
[2018-12-05] MEDS ORDERED: MAGNESIUM SULFATE 1 GM in NACL 0.9% 50 ML IV ONE (21:00)
[2018-12-05] MEDS ORDERED: ASPIRIN PO ONE (21:03)
[2018-12-05 21:18] LABS: Creatine Kinase MB 1.6 ng/mL (0.0-4.0)
--- NOTE | 2018-12-05 22:22 | History and Physical Report ---
History of Present Illness Chief complaint: Im coughing, and i cant breathe History of present illness: 23 YO Female with DM, Pancreatitis presents to ED for evaluation. Pt states that she has experienced shortness and productive cough with yellow sputum over the past 3 days with persistent symptoms over the same time frame. Patient acknowledges weakness, chills and body aches. Pt transported to [facility] via private vehicle. Pt seen and evaluated in ED and found to have Acute Bronchitis complicated by Acute Hypoxemic Respiratory Failure with pulse oximetry of 88% on room air, and tachypnea with respiratory rate of 35. Pt treated with supplemental oxygen and nebulizer therapy with improvement in symptoms. Pt admitted to medical floor. Pt denies fever, chills, CP, Palpitations, NVD, Trauma, BRBPR, Productive cough, skin rash, or recent ill contacts. No prior admission for review. No medication listed for reconciliation at time of admission. Past History Past Medical History: diabetes, other (Pancreatitis) Past Surgical History: Social history: single. denies: smoking, alcohol abuse, prescription drug abuse Family history: diabetes, hypertension Medications and Allergies Allergies Allergy/AdvReac Type Severity Reaction Status Date / Time No Known Allergies Allergy Verified 12/05/18 15:26 Home Medications Medication Instructions Recorded Confirmed Last Taken Type Insulin NPH, Human [NovoLIN N] 15 unit SQ QPMDIAB #30 day 10/27/18 12/05/18 Unknown Rx Insulin NPH, Human [NovoLIN N] 25 unit SUB-Q QAMDIAB #30 day 10/27/18 12/05/18 Unknown Rx Insulin Regular, Human [Novolin R] 5 units SC AC #30 day 10/27/18 12/05/18 Unknown Rx Review of Systems Constitutional: no weight loss, no weight gain, no fever, no chills Ears, nose, mouth and throat: no ear pain, no ear discharge, no tinnitis, no decreased hearing, no nose pain, no nasal congestion Breasts: no change in shape, no swelling, no mass Cardiovascular: no chest pain, no orthopnea, no palpitations, no rapid/irregular heart beat, no edema, no syncope Respiratory: cough, cough with sputum, excessive sputum, shortness of breath, sleep apnea Gastrointestinal: no abdominal pain, no nausea, no vomiting, no diarrhea, no constipation Genitourinary Female: no pelvic pain, no flank pain, no menorrhagia, no dysuria, no urinary frequency, no stress incontinence, no post void dribbling Menstruation: no premenarcheal, no post hysterectomy, no ammenorrhea, no ammenorrhea on BC, no period normal Rectal: no pain, no incontinence, no bleeding Musculoskeletal: no neck stiffness, no neck pain, no shooting arm pain Integumentary: no rash, no redness, no sores, no wounds Neurological: no head injury, no paralysis, no weakness, no parathesias, no numbness, no tingling Psychiatric: no anxiety, no memory loss, no sleep disturbances, no insomnia, no hypersomnia, no change in appetite Endocrine: no cold intolerance, no polyphagia, no polyuria Hematologic/Lymphatic: no easy bruising, no easy bleeding Allergic/Immunologic: no urticaria, no allergic rhinitis, no wheezing, no persistent infections Exam - Constitutional Vitals: Temp Pulse Resp BP Pulse Ox 99 F 100 H 24 144/84 97 12/05/18 19:00 12/05/18 20:38 12/05/18 20:38 12/05/18 20:15 12/05/18 20:15 General appearance: Present: mild distress - EENT Eyes: Present: PERRL ENT: hearing intact, clear oral mucosa - Neck Neck: Present: supple, normal ROM - Respiratory Respiratory effort: normal Respiratory: bilateral: diminished, rhonchi - Cardiovascular Heart Sounds: Present: S1 & S2. Absent: rub, click - Extremities Extremities: pulses symmetrical, No edema Peripheral Pulses: within normal limits - Abdominal General gastrointestinal: Present: soft, non-tender, non-distended, normal bowel sounds Female genitourinary: Present: normal - Integumentary Integumentary: Present: clear, warm, dry - Musculoskeletal Musculoskeletal: gait normal, strength equal bilaterally - Psychiatric Psychiatric: appropriate mood/affect, intact judgment & insight - Neurologic Neurologic: CNII-XII intact, moves all extremities Results - Labs CBC & Chem 7: 12/05/18 16:19 12/05/18 16:19 Labs: Abnormal lab results 12/05/18 12/05/18 12/05/18 Range/Units 16:19 16:19 18:27 RDW 12.9 L (13.2-15.2) % Seg Neutrophils % 71.6 H (40.0-70.0) % Sodium 133 L (137-145) mmol/L Carbon Dioxide 21 L (22-30) mmol/L Glucose 440 H (65-100) mg/dL POC Glucose (70-105) Total Creatine Kinase 144 H (30-135) units/L 12/05/18 12/05/18 12/05/18 Range/Units 20:08 20:41 21:50 RDW (13.2-15.2) % Seg Neutrophils % (40.0-70.0) % Sodium (137-145) mmol/L Carbon Dioxide (22-30) mmol/L Glucose (65-100) mg/dL POC Glucose 303 H 304 H (70-105) Total Creatine Kinase 147 H (30-135) units/L Assessment and Plan - Patient Problems (1) Respiratory failure Current Visit: Yes Status: Acute Qualifiers: Chronicity: acute Respiratory failure complication: hypoxia Qualified Code(s): J96.01 - Acute respiratory failure with hypoxia Plan to address problem: Supplemental oxygen,nebulizer therapy, pulse oximetry, (2) Diabetes Current Visit: Yes Status: Acute Plan to address problem: ADA diet, insulin, accu check (3) Bronchitis Current Visit: Yes Status: Acute Plan to address problem: supplemental oxygen, IV antibiotic therapy, IV steroid therapy chest x ray. (4) DVT prophylaxis Current Visit: Yes Status: Acute Plan to address problem: SCD to BLE while in bed, Pt ambulatory
[2018-12-05] MEDS ORDERED: PROVENTIL IH PRN (22:24)
[2018-12-05] MEDS ORDERED: ZOFRAN IV PRN (22:24)
[2018-12-05] MEDS ORDERED: SODIUM CHLORIDE FLUSH SYRINGE 10 ML IV PRN (22:24)
[2018-12-05] MEDS ORDERED: TYLENOL PO PRN (22:24)
--- NOTE | 2018-12-05 22:32 | Nuclear Medicine Report ---
Nuclear medicine pulmonary VQ scan INDICATION: Acute onset chest pain with dyspnea TECHNIQUE: A total of 24.3 mCi xenon-133 and 3.97 mCi of technetium 99 MAA was injected IV per protoc ol COMPARISON: Chest radiograph performed earlier today FINDINGS: Normal wash-in and washout of xenon radiotracer. No mismatch perfusion defects are identifi ed IMPRESSION: Low probability for PTE. Signer Name: Timbo Jordan MD Signed: 12/05/2018 10:28 PM Workstation Name: [id number]
[2018-12-05] MEDS ORDERED: HYDROMET PO ONE (23:39)
[2018-12-05] MEDS ORDERED: NACL 0.45% 1000 ML 1,000 ML IV ONE (23:47)
[2018-12-05] MEDS: NACL 0.45% 1000 ML 1,000 ML IV SCH (23:51)
[2018-12-06] MEDS ORDERED: MORPHINE ONE (03:36)
[2018-12-06] MEDS: MORPHINE IV PRN ×3 (03:40→19:36)
[2018-12-06 05:30] LABS: Hemoglobin 12.4 gm/dl (10.1-14.3); Mean Corpuscular HGB Conc 34 % (30-34); Mean Corpuscular Volume 92 fl (79-97); Platelet Count 240 K/mm3 (140-440); Red Blood Count 3.89 M/mm3 (3.65-5.03); Red Cell Distribution Width 12.5 % (13.2-15.2)
[2018-12-06 05:57] LABS: Alanine Aminotransferase 14 units/L (7-56); Albumin 3.5 g/dL (3.9-5); BUN/Creatinine Ratio 13; Blood Urea Nitrogen 10 mg/dL (7-17); Calcium 9.1 mg/dL (8.4-10.2); Hemolysis Index 6
[2018-12-06 08:34] LABS: Basophils % (Manual) 0 % (0.0-1.8); Eosinophils % (Manual) 0 % (0.0-4.3); Total Cells Counted 100
[2018-12-06 08:36] LABS: Platelet Estimate Consistent w Auto; RBC Morphology Normal; Toxic Granulation 1+
[2018-12-06] MEDS: HumuLIN R SUB-Q SCH ×4 (09:16→21:51)
[2018-12-06] MEDS ORDERED: HumuLIN R ONE (09:16)
[2018-12-06] MEDS: LOVENOX SUB-Q SCH (10:49)
[2018-12-06] MEDS: SODIUM CHLORIDE FLUSH SYRINGE 10 ML IV SCH ×2 (10:50→21:51)
[2018-12-06] MEDS: SOLU-Medrol IV SCH ×2 (12:57→21:51)
--- NOTE | 2018-12-06 15:09 | Progress Note ---
Assessment and Plan /Acute hypoxic Respiratory failure Likely due to acute asthma exacerbation Continue Supplemental oxygen,nebulizer therapy, pulse oximetry, IV steroid / Diabetes type I, uncontrolled ADA diet, insulin, accu check, get A1c /Acute Bronchitis supplemental oxygen, IV antibiotic therapy, /Acute asthma exacerbation Likely new onset Continue Supplemental oxygen,nebulizer therapy, pulse oximetry, IV steroid / DVT prophylaxis SCD to BLE while in bed, Pt ambulatory Hospitalist physical: GENERAL: well-developed and well-nourished -[place] female lying on bed appeared to be in no discomfort. HEENT: Normocephalic. Atraumatic. No conjunctival congestion or icterus. Patient has moist mucous membranes. NECK: Supple. Trachea midline. CHEST/LUNGS: Positive wheezes auscultated bilaterally, breathing nonlabored. No crackles or rhonchi. HEART/CARDIOVASCULAR: Regular in rate and rhythm. S1 and S2 positive. ABDOMEN: Abdomen is soft, nontender. Patient has normal bowel sounds. SKIN: There is no rash. Warm and dry. NEURO: No focal motor deficit. Follows command. MUSCULOSKELETAL: No joint effusion or tenderness. EXTRIMITY: No edema, no cyanosis or clubbing. PSYCH: Cooperative. Subjective Date of service: 12/06/18 Interval history: Patient seen and examined. Medical records and medication list reviewed. No acute event overnight noted by the RN. Patient continued to complain of difficulty breathing and wheezing along with cough on exertion. Patient is tolerating diet. Discussed plan of care at bedside with patient. Objective - Constitutional Vitals: Vital Signs - 12hr 12/06/18 12/06/18 12/06/18 03:40 04:01 05:01 Pulse Rate 81 83 Respiratory 16 21 24 Rate Blood Pressure 120/69 120/69 Blood Pressure [Right] O2 Sat by Pulse 97 97 Oximetry 12/06/18 12/06/18 12/06/18 05:07 06:01 07:01 Pulse Rate 97 H 76 Respiratory 15 24 23 Rate Blood Pressure 117/76 117/76 Blood Pressure 117/76 [Right] O2 Sat by Pulse 98 97 97 Oximetry 12/06/18 12/06/18 08:01 09:01 Pulse Rate 59 L 69 Respiratory Rate Blood Pressure 117/76 117/76 Blood Pressure [Right] O2 Sat by Pulse 98 98 Oximetry - Labs CBC & Chem 7: 12/06/18 04:55 12/07/18 10:58 Labs: Abnormal lab results 12/05/18 12/05/18 12/05/18 Range/Units 16:19 16:19 18:27 RDW 12.9 L (13.2-15.2) % Seg Neutrophils % 71.6 H (40.0-70.0) % Seg Neuts % (Manual) (40.0-70.0) % Lymphocytes % (Manual) (13.4-35.0) % Seg Neutrophils # Man (1.8-7.7) K/mm3 Lymphocytes # (Manual) (1.2-5.4) K/mm3 Sodium 133 L (137-145) mmol/L Potassium (3.6-5.0) mmol/L Carbon Dioxide 21 L (22-30) mmol/L Glucose 440 H (65-100) mg/dL POC Glucose (70-105) Total Creatine Kinase 144 H (30-135) units/L Albumin (3.9-5) g/dL 12/05/18 12/05/18 12/05/18 Range/Units 20:08 20:41 21:50 RDW (13.2-15.2) % Seg Neutrophils % (40.0-70.0) % Seg Neuts % (Manual) (40.0-70.0) % Lymphocytes % (Manual) (13.4-35.0) % Seg Neutrophils # Man (1.8-7.7) K/mm3 Lymphocytes # (Manual) (1.2-5.4) K/mm3 Sodium (137-145) mmol/L Potassium (3.6-5.0) mmol/L Carbon Dioxide (22-30) mmol/L Glucose (65-100) mg/dL POC Glucose 303 H 304 H (70-105) Total Creatine Kinase 147 H (30-135) units/L Albumin (3.9-5) g/dL 12/06/18 12/06/18 12/06/18 Range/Units 00:01 03:30 04:55 RDW 12.5 L (13.2-15.2) % Seg Neutrophils % (40.0-70.0) % Seg Neuts % (Manual) 94.0 H (40.0-70.0) % Lymphocytes % (Manual) 4.0 L (13.4-35.0) % Seg Neutrophils # Man 8.7 H (1.8-7.7) K/mm3 Lymphocytes # (Manual) 0.4 L (1.2-5.4) K/mm3 Sodium (137-145) mmol/L Potassium (3.6-5.0) mmol/L Carbon Dioxide (22-30) mmol/L Glucose (65-100) mg/dL POC Glucose 290 H 331 H (70-105) Total Creatine Kinase (30-135) units/L Albumin (3.9-5) g/dL 12/06/18 12/06/18 12/06/18 Range/Units 04:55 08:52 12:53 RDW (13.2-15.2) % Seg Neutrophils % (40.0-70.0) % Seg Neuts % (Manual) (40.0-70.0) % Lymphocytes % (Manual) (13.4-35.0) % Seg Neutrophils # Man (1.8-7.7) K/mm3 Lymphocytes # (Manual) (1.2-5.4) K/mm3 Sodium 131 L (137-145) mmol/L Potassium 5.1 H D (3.6-5.0) mmol/L Carbon Dioxide 18 L (22-30) mmol/L Glucose 395 H (65-100) mg/dL POC Glucose 427 H 302 H (70-105) Total Creatine Kinase (30-135) units/L Albumin 3.5 L (3.9-5) g/dL
[2018-12-06] MEDS: NACL 0.45% 1000 ML 1,000 ML IV SCH (21:50)
[2018-12-07] MEDS: MORPHINE IV PRN ×3 (02:07→23:11)
[2018-12-07] MEDS: HumuLIN R SUB-Q SCH ×3 (09:03→17:07)
[2018-12-07] MEDS: SOLU-Medrol IV SCH ×3 (09:12→23:06)
[2018-12-07] MEDS: LOVENOX SUB-Q SCH (09:13)
[2018-12-07] MEDS: SODIUM CHLORIDE FLUSH SYRINGE 10 ML IV SCH ×2 (09:16→23:06)
[2018-12-07 12:09] LABS: BUN/Creatinine Ratio 16; Blood Urea Nitrogen 11 mg/dL (7-17); Calcium 9.2 mg/dL (8.4-10.2); Hemolysis Index 8
[2018-12-07] MEDS: DUONEB *Not for PRN Use IH SCH ×2 (14:42→21:06)
--- NOTE | 2018-12-07 14:48 | Progress Note ---
Assessment and Plan /Acute hypoxic Respiratory failure, improved Likely due to acute asthma exacerbation Continue Supplemental oxygen,nebulizer therapy, pulse oximetry, IV steroid / Diabetes type I, uncontrolled with hyperglycemia Likely due to steroid ADA diet, insulin, accu check, A1c 9.7 /Acute Bronchitis supplemental oxygen, IV antibiotic therapy, /Acute asthma exacerbation Likely new onset Continue Supplemental oxygen,nebulizer therapy, pulse oximetry, IV steroid /Hyperkalemia, resolved / DVT prophylaxis SCD to BLE while in bed, Pt ambulatory Disposition: Possible discharge tomorrow if clinically stable Hospitalist physical: GENERAL: well-developed and well-nourished -[place] female lying on bed appeared to be in no discomfort. HEENT: Normocephalic. Atraumatic. No conjunctival congestion or icterus. Patient has moist mucous membranes. NECK: Supple. Trachea midline. CHEST/LUNGS: Positive wheezes auscultated bilaterally, breathing nonlabored. No crackles or rhonchi. HEART/CARDIOVASCULAR: Regular in rate and rhythm. S1 and S2 positive. ABDOMEN: Abdomen is soft, nontender. Patient has normal bowel sounds. SKIN: There is no rash. Warm and dry. NEURO: No focal motor deficit. Follows command. MUSCULOSKELETAL: No joint effusion or tenderness. EXTRIMITY: No edema, no cyanosis or clubbing. PSYCH: Cooperative. Subjective Date of service: 12/07/18 Interval history: Patient seen and examined. Medical records and medication list reviewed. No acute event overnight noted by the RN. Patient continued to complain of difficulty breathing and wheezing along with cough on exertion. Patient is tolerating diet. Discussed plan of care at bedside with patient. Objective - Constitutional Vitals: Vital Signs - 12hr 12/07/18 12/07/18 12/07/18 04:02 10:00 12:48 Temperature 98.3 F Pulse Rate 91 H Pulse Rate [ 95 H Anterior Bilateral Throughout] Respiratory 18 Rate Respiratory 20 Rate [Anterior Bilateral Throughout] Blood Pressure 105/61 O2 Sat by Pulse 95 98 Oximetry 12/07/18 12/07/18 12/07/18 12:58 14:01 14:42 Temperature 98.6 F Pulse Rate 89 Pulse Rate [ 87 104 H Anterior Bilateral Throughout] Respiratory 22 Rate Respiratory 20 20 Rate [Anterior Bilateral Throughout] Blood Pressure 127/83 O2 Sat by Pulse 95 Oximetry - Labs CBC & Chem 7: 12/06/18 04:55 12/07/18 10:58 Labs: Abnormal lab results 12/06/18 12/06/18 12/06/18 Range/Units 16:07 20:56 Unknown Sodium (137-145) mmol/L Carbon Dioxide (22-30) mmol/L Glucose (65-100) mg/dL POC Glucose 336 H 365 H (70-105) Hemoglobin A1c 9.7 H (4-6) % 12/07/18 12/07/18 12/07/18 Range/Units 01:36 08:32 10:58 Sodium 134 L (137-145) mmol/L Carbon Dioxide 21 L (22-30) mmol/L Glucose 308 H (65-100) mg/dL POC Glucose 168 H 279 H (70-105) Hemoglobin A1c (4-6) %
[2018-12-07] MEDS: ZITHROMAX PO SCH (15:32)
[2018-12-07] MEDS: PULMICORT IH SCH (21:06)
[2018-12-07] MEDS ORDERED: SENOKOT S PO PRN (22:13)
[2018-12-07] MEDS: HumaLOG SUB-Q SCH (23:05)
[2018-12-08] MEDS: DUONEB *Not for PRN Use IH SCH ×3 (01:36→13:12)
[2018-12-08] MEDS: SOLU-Medrol IV SCH ×2 (05:54→13:06)
[2018-12-08] MEDS ORDERED: HumaLOG SUB-Q SCH (07:30)
[2018-12-08] MEDS: HumaLOG SUB-Q SCH ×2 (08:30→13:06)
[2018-12-08] MEDS: PULMICORT IH SCH (08:32)
[2018-12-08] MEDS ORDERED: SOLU-Medrol IV SCH (10:00)
[2018-12-08] MEDS ORDERED: COLACE PO SCH (12:00)
[2018-12-08] MEDS ORDERED: DULCOLAX PO ONE (12:00)
[2018-12-08] MEDS ORDERED: MIRALAX 3350 PO SCH (12:00)
[2018-12-08] MEDS: ZITHROMAX PO SCH (12:09)
[2018-12-08] MEDS: SODIUM CHLORIDE FLUSH SYRINGE 10 ML IV SCH (12:10)
[2018-12-08] MEDS: LOVENOX SUB-Q SCH (12:10)
[2018-12-08 12:53] VITALS: BP 149/100
--- NOTE | 2018-12-08 13:05 | Discharge Summary ---
Providers - Providers Date of Admission: 12/05/18 22:24 Date of discharge: 12/08/18 Attending physician: TERESA VALDEZ Primary care physician: KAYLI GARCIA Hospitalization Condition: Critical Pertinent studies: Chest x-ray, VQ scan and abdominal x-ray Hospital course: 23 YO Female with DM, Pancreatitis presents to ED for evaluation of shortness of breath and productive cough with yellow sputum over the past 3 days with persistent symptoms. Pt seen and evaluated in ED and found to have Acute Bronchitis complicated by Acute Hypoxemic Respiratory Failure with pulse oximetry of 88% on room air, and tachypnea with respiratory rate of 35. Pt treated with supplemental oxygen and nebulizer therapy with improvement in symptoms. Pt admitted to medical floor. Continued Supplemental oxygen,nebulizer therapy, pulse oximetry, IV steroid and abx. Her symptom improved and stabilized, managed BG with SSI, and long acting insulin. She was then discharged home in stable condition with outpt followup. Discharge diagnosis and management: /Acute hypoxic Respiratory failure, resolved Likely due to acute asthma exacerbation / Diabetes type I, uncontrolled with hyperglycemia Likely due to steroid, A1c 9.7 /Acute Bronchitis /Acute asthma exacerbation /Hyperkalemia, resolved /Constipation, resolved with stool softener / DVT prophylaxis SCD to BLE while in bed, Pt ambulatory Disposition: home Hospitalist physical: GENERAL: well-developed and well-nourished -[place] female lying on bed appeared to be in no discomfort. HEENT: Normocephalic. Atraumatic. No conjunctival congestion or icterus. Patient has moist mucous membranes. NECK: Supple. Trachea midline. CHEST/LUNGS: no wheezes auscultated bilaterally, breathing nonlabored. No crackles or rhonchi. HEART/CARDIOVASCULAR: Regular in rate and rhythm. S1 and S2 positive. ABDOMEN: Abdomen is soft, nontender. Patient has normal bowel sounds. SKIN: There is no rash. Warm and dry. NEURO: No focal motor deficit. Follows command. MUSCULOSKELETAL: No joint effusion or tenderness. EXTRIMITY: No edema, no cyanosis or clubbing. PSYCH: Cooperative. Disposition: - TO HOME OR SELFCARE Time spent for discharge: 34 minutes Core Measure Documentation - Palliative Care Palliative Care/ Comfort Measures: Not Applicable - Core Measures Any of the following diagnoses?: none Exam - Constitutional Vitals: Temp Pulse Resp BP Pulse Ox 98.8 F 87 15 149/100 97 07/14/19 12:51 12/08/18 12:51 12/08/18 12:51 12/08/18 12:51 12/08/18 12:51 Plan Activity: advance as tolerated Weight Bearing Status: Weight Bear as Tolerated Diet: diabetic Special Instructions: record blood sugar diary Follow up with: KAYLI GARCIA MD [Primary Care Provider] - 3-5 Days Prescriptions: predniSONE [Deltasone] 50 mg PO QDAY #5 tab ALBUTEROL Inhaler (OR & NICU) [Proair] 2 puff IH QID PRN 30 Days #1 vial PRN Reason: Shortness Of Breath Azithromycin [Zithromax TAB] 500 mg PO QDAY #4 tablet
--- NOTE | 2018-12-08 13:34 | XRay Report ---
Abdomen single view INDICATION: Abdominal pain IMPRESSION: Large stool burden identified throughout the colon. Nonobstructive bowel gas pattern. Signer Name: Timbo Jordan MD Signed: 12/08/2018 1:29 PM Workstation Name: [id number]
== END 2018-12-08 16:58 | disposition home or self-care (01) | DRG 189 ==
LOC: ED 15:25 → 3A 22:24
PROVIDERS: ADMIT Internal Medicine; ATTEND Internal Medicine
DX: J96.01 Acute respiratory failure with hypoxia (principal); J20.9 Acute bronchitis, unspecified; J45.901 Unspecified asthma with (acute) exacerbation; E09.65 Drug or chemical induced diabetes mellitus with hyperglycemia; E87.5 Hyperkalemia; K59.00 Constipation, unspecified; T38.0X5A Adverse effect of glucocorticoids and synthetic analogues, initial encounter; Y92.89 Other specified places as the place of occurrence of the external cause; Z82.49 Family history of ischemic heart disease and other diseases of the circulatory system; Z83.3 Family history of diabetes mellitus; Z79.899 Other long term (current) drug therapy
CPT/HCPCS: 36415; 71046; 74018; 78582; 80048; 80053; 81001; 81025; 82550; 82553; 82962; 83036; 83690; 83880; 84484; 85007; 85025; 93005; 93010; 94640; G0378; A9540; A9558; J0696; J1650; J1815; J2270; J2920; J2930; J3475; J7030

== ENCOUNTER 2019-01-08 14:04 | Emergency (ER) | payer OTHER, MEDICAID ==
[2019-01-08 14:21] VITALS: BP 113/76
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
[2019-01-08] MEDS ORDERED: IBUPROFEN PO ONE (15:49)
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
== END 2019-01-08 17:50 | disposition home or self-care (01) ==
LOC: ED 14:04
DX: S46.911A Strain of unspecified muscle, fascia and tendon at shoulder and upper arm level, right arm, initial encounter (principal); S20.211A Contusion of right front wall of thorax, initial encounter; S13.4XXA Sprain of ligaments of cervical spine, initial encounter; E11.9 Type 2 diabetes mellitus without complications; Z79.4 Long term (current) use of insulin; Z79.899 Other long term (current) drug therapy; V89.2XXA Person injured in unspecified motor-vehicle accident, traffic, initial encounter; Y93.89 Activity, other specified; Y92.488 Other paved roadways as the place of occurrence of the external cause; Y99.8 Other external cause status
CPT/HCPCS: 71046; 72040; 99283